=== PATIENT | female | born 1960 | race Caucasian/White ===

== ENCOUNTER 2016-05-14 11:55 | Day surgery (SDC) | payer OTHER ==
[~2016-05-14] VITALS: Ht 177.8 cm; Wt 77.1 kg
[~2016-05-14 11:55] MED LIST: AMPYRA10 MG PO; ASCORBIC ACID500 M3 PO; AVONEX PEN30 MCG/0.1 IM; B COMPLETE1 EACH PO; BACLOFEN20 MG PO; BETHANECHOL CHL10 MG PO; CALCIUM 500 +1 EACH PO; CALCIUM 500 MG1 EACH PO; COLACE100 MG PO; CRANBERRY500 MG PO; GABAPENTIN300 MG PO; LEXAPRO20 MG PO; MAGNESIUM OXID200 MG PO; MAGNESIUM400 M1 PO; MELATONIN10 M2 PO; MELOXICAM15 MG PO; PROVIGIL200 MG PO; SELENIUM200 MC3 PO; SELENIUM200 MCG PO; SEROQUEL12.5 MG PO; TRAMADOL HCL100 MG PO; VITAMIN D400 UNI1 PO; VITAMIN E400 UNIT PO
[2016-05-14 12:24] VITALS: BP 139/79
[2016-05-14 16:25] VITALS: BP 171/74
[2016-05-14 17:17] VITALS: BP 156/78
== END 2016-05-14 17:22 | disposition home or self-care (01) ==
LOC: SDC 11:55
DX: S93.621D Sprain of tarsometatarsal ligament of right foot, subsequent encounter (principal); G35 Multiple sclerosis; M54.30 Sciatica, unspecified side; M51.26 Other intervertebral disc displacement, lumbar region; Z79.899 Other long term (current) drug therapy
CPT/HCPCS: 73630; 76000; C1713; J0690; J1100; J1170; J2250; J2405; J2795; J3010; S0020